=== PATIENT | male | born 1955 | race Caucasian/White ===

== ENCOUNTER 2018-11-13 07:22 | Day surgery (SDC) | payer MEDICARE, OTHER, SELFPAY ==
[2018-11-13] VITALS (7 sets, daily range): BP systolic 107–133; BP diastolic 79–103; PULSE 57–83; RESP 14–16; TEMP 36.6–36.8; O2SAT 97–100; BMI 23.4
--- NOTE | 2018-11-13 08:55 | HP.PCM_ITS ---
Problem List (1) Personal history of colonic polyps Status: Acute History of Present Illness Date of Admission: 11/13/18 The patient is a 63 year old M who presents for colonoscopy. I last performed his colonoscopy in 2011. This patient had a significant polyp in his rectum whi ch took me over a year to completely ablated with laser ablation. He did have some dysplasia and he was able to be treated with conservative colonoscopy removal as opposed to a large surgery. I recommended at that time that he have another colonoscopy in 5 years. Past Medical History Allergies procaine [From Novocain] Allergy (Verified 11/08/18 15:54) Unknown ramipril [From Altace] Adverse Reaction (Verified 11/13/18 07:45) COUGH triamcinolone [From Kenalog] Adverse Reaction (Verified 11/08/18 15:54) cough Home Medications: Ambulatory Orders Medication Instructions Recorded Aspirin E.C. [Ecotrin] 81 mg PO QHS 11/08/18 Atenolol [Tenormin (Beta Saturnino)] 25 mg PO QHS 11/08/18 Cyanocobalamin [Vitamin B12] 500 mcg PO DAILY@0800 11/08/18 Folic Acid 1 mg PO DAILY 11/08/18 Hydrochlorothiazide 12.5 mg PO QHS 11/08/18 Multivitamin with Minerals 1 each PO DAILY 11/08/18 [Multiple Vitamin] Pyridoxine HCl (Vitamin B6) 250 mg PO DAILY 11/08/18 [Vitamin B-6] Rosuvastatin Calcium [Crestor] 20 mg PO QHS 11/08/18 Valsartan [Diovan] 160 mg PO QHS 11/08/18 Vitamin E 400 units PO DAILY 11/08/18 Smoking Status: Former smoker Tobacco Use: Non-smoker Review of Systems Cardiovascular: Denies: Chest Pain, Chest Pressure, Chest Tightness, Palpitations Respiratory: Denies: Cough, Hemoptysis, Shortness of breath at rest, Shortness of breath upon exertion, Wheezing Gastrointestinal: Denies: Abdominal Pain, Constipation, Diarrhea, Hematemesis, Nausea, Melena, Vomiting VTE Information - Inpt Only VTE Present on Admission: No VTE Mechan Device Prophylaxis: None VTE Pharm Prophylaxis ordered?: No Reason prophylaxis not ordered:: Treatment Not Indicated Patient Problems: Active and Suspected Problems Personal history of colonic polyps (Acute) - Physical Exam General: Alert, Oriented x3 Lungs: Clear to auscultation Cardiovascular: Regular rate, Regular Rhythm, No murmurs Abdomen: Bowel Sounds Present, Soft, Non Tender, Non-Distended Vital Signs Temp Pulse Resp BP Pulse Ox 98.0 F 83 16 133/98 H 100 11/13/18 07:45 11/13/18 07:45 11/13/18 07:45 11/13/18 07:45 11/13/18 07:45 Oxygen Delivery Method Room Air Weight: 177 lb 14.609 oz Body Mass Index (BMI) 23.4 Assessment/Plan All Active Problems Personal history of colonic polyps (Acute) Plan is to perform a colonoscopy.
--- NOTE | 2018-11-13 08:59 | OP.ENDO_ITS ---
Patient Name: Abdirahman Macario Procedure Date: 11/13/2018 8:28 AM Date of : 1955 Age: 63 Procedure: Colonoscopy Indications: High risk colon cancer surveillance: Personal history of colonic polyps Providers: Gary Fam MD Referring MD: Gary Fam MD Medicines: See the Anesthesia note for documentation of the administered medications Patient Profile: This is a 63 year old male. Refer to note in patient chart for documentation of history and physical. Last Colonoscopy: 5 years ago. Complications: No immediate complications. Procedure: Pre-Anesthesia Assessment: - Prior to the procedure, a History and Physical was performed, and patient medications and allergies were reviewed. The patient's tolerance of previous anesthesia was also reviewed. The risks and benefits of the procedure and the sedation options and risks were discussed with the patient. All questions were answered, and informed consent was obtained. Prior Anticoagulants: The patient has taken no previous anticoagulant or antiplatelet agents. ASA Grade Assessment: II - A patient with mild systemic disease. After reviewing the risks and benefits, the patient was deemed in satisfactory condition to undergo the procedure. After I obtained informed consent, the scope was passed under direct vision. Throughout the procedure, the patient's blood pressure, pulse, and oxygen saturations were monitored continuously. The adult colonoscope was introduced through the anus and advanced to the cecum, identified by appendiceal orifice and ileocecal valve. The colonoscopy was performed without difficulty. The patient tolerated the procedure well. The quality of the bowel preparation was good. Scope In: 8:41:45 AM Scope Withdrawal Time 0 hours 6 minutes 7 seconds Scope Out: 8:51:07 AM Total Procedure Duration Time 0 hours 9 minutes 22 seconds Findings: The area where his previous dysplastic polyp was located look normal and had a nice scar. I did not see any signs of recurrence of the polyp at this time. I believe the best thing here to do is to surveilled this again in 5 years. The perianal and digital rectal examinations were normal. A few small-mouthed diverticula were found in the sigmoid colon. Impression: - Diverticulosis in the sigmoid colon. - No specimens collected. Recommendation: - Discharge patient to home. - Resume previous diet. - Continue present medications. - Repeat colonoscopy in 5 years for surveillance. - Return to my office PRN. Procedure Code(s): --- Professional --- G0105, Colorectal cancer screening; colonoscopy on individual at high risk Diagnosis Code(s): --- Professional --- Z86.010, Personal history of colonic polyps K57.30, Diverticulosis of large intestine without perforation or abscess without bleeding CPT copyright 2017 [employer]. All rights reserved. The codes documented in this report are preliminary and upon shoe repairman review may be revised to meet current compliance requirements. MD Gary Redd MD 11/13/2018 8:59:21 AM This report has been signed electronically. Number of Addenda: 0 Note Initiated On: 11/13/2018 8:28 AM
--- NOTE | 2018-11-13 09:15 | SUR.PHASEII ---
PATIENT STATES HE'S GOING TO WORK TODAY AT [email or web address], EXPLAINED/EDUCATED THAT WITH MAC ANESTHESIA, SHOULD NOT DRIVE, DRINK ALCOHOL, SIGN LEGAL DOCUMENTS, OPERATE HEAVY EQUIPMENT. EXPLAINED TO WELL.
== END 2018-11-13 09:52 | disposition home health service (06) ==
LOC: EN 07:22 → AC 07:25
PROVIDERS: Family Provider Family Medicine; PCP Family Medicine; Referring Provider Surgery; Visit Provider Surgery
PROC: 0DJD8ZZ Inspection of Lower Intestinal Tract, Via Natural or Artificial Opening Endoscopic (ICD-10-PCS; CPT 45378; principal; 2018-11-13 08:25)
DX: Z12.11 Encounter for screening for malignant neoplasm of colon (principal); K57.30 Diverticulosis of large intestine without perforation or abscess without bleeding; I10 Essential (primary) hypertension; E78.00 Pure hypercholesterolemia, unspecified; Z79.82 Long term (current) use of aspirin; Z79.899 Other long term (current) drug therapy; Z86.010 Personal history of colon polyps; Z86.718 Personal history of other venous thrombosis and embolism; Z85.828 Personal history of other malignant neoplasm of skin; Z87.891 Personal history of nicotine dependence
CPT/HCPCS: G0105; J7120

== ENCOUNTER 2022-08-20 19:41 | Emergency (ER) | payer MEDICARE, OTHER, SELFPAY ==
[2022-08-20 19:41] VITALS: BP 127/98; PULSE 69; RESP 16; TEMP 36.6; O2SAT 100; BMI 21.3
--- NOTE | 2022-08-20 20:02 | EKG12_ITS ---
Test Reason : SYNCOPE Blood Pressure : / mmHG Vent. Rate : 062 BPM Atrial Rate : 062 BPM P-R Int : 144 ms QRS Dur : 096 ms QT Int : 430 ms P-R-T Axes : 048 -22 025 degrees QTc Int : 436 ms Normal sinus rhythm Normal ECG Confirmed by KATIE WEAVER, NICO ([id number]), map editor KATHARINE DAVIS ([id number]) on 08/22/2022 8:19:11 AM Referred By: Confirmed By:NICO WILSON MD
--- NOTE | 2022-08-20 20:03 | EDS_ITS ---
HPI History of Present Illness Chief Complaint: Syncope Narrative Narrative: 67-year-old male past medical history of hypertension, states his blood pressure usually runs just above 130 systolic presents with syncopal episode that he experienced tonight. He and his daughter state that while she brought him here, paramedics were called to the house because he had a syncopal episode. He had been sleeping in a chair for approximately 45 minutes, got up, started walking, and fell into a coffee table and broke it. He did not hit his head. He does not take blood thinners. He denies any neck pain. They state that his left shoulder took the brunt of the fall, breaking the table but he denies any arm pain. He had no prodromal symptoms such as chest pain or shortness of breath. He states the next thing that he knew he woke up and there were paramedics present. They told him that his blood pressure was low. They stated that it was below 100 systolic. When they went to sit him up or stand him his blood pressure did drop again. He denies any recent fever or chills. No nausea or vomiting. No diarrhea. He is not currently in any pain. He takes atenolol and hydrochlorothiazide for his usual blood pressure problems/hypertension. [facility] Medical History Colon polyps Heart disease Hypercholesteremia Hypertension Home Medications aspirin 81 mg tablet,delayed release 81 mg PO QHS 11/08/18 [History Last Taken Unknown] atenolol 50 mg tablet 25 mg PO QHS 11/08/18 [History Last Taken Unknown] cyanocobalamin (vitamin B-12) 500 mcg tablet 500 mcg PO DAILY@0800 11/08/18 [History Last Taken Unknown] folic acid 1 mg tablet 1 mg PO DAILY 11/08/18 [History Last Taken Unknown] hydrochlorothiazide 12.5 mg tablet 12.5 mg PO QHS 11/08/18 [History Last Taken Unknown] multivitamin with minerals (Multiple Vitamin-Minerals tablet) 1 ea PO DAILY 11/08/18 [History Last Taken Unknown] pyridoxine (vitamin B6) 250 mg tablet (Vitamin B-6) 250 mg PO DAILY 11/08/18 [History Last Taken Unknown] rosuvastatin 20 mg tablet (Crestor) 20 mg PO QHS 11/08/18 [History Last Taken Unknown] valsartan 160 mg tablet 160 mg PO QHS 11/08/18 [History Last Taken Unknown] vitamin E (dl, acetate) 180 mg (400 unit) capsule 400 units PO DAILY 11/08/18 [History Last Taken Unknown] Allergy/AdvReac Type Severity Reaction Status Date / Time procaine [From Novocain] Allergy Unknown Verified 08/20/22 20:00 ramipril [From Altace] AdvReac COUGH Verified 08/20/22 20:00 triamcinolone [From Kenalog] AdvReac cough Verified 08/20/22 20:00 Social History Smoking Status: Former smoker ROS ROS ED ROS Narrative Constitutional: No fever, no chills. HEENT: No sore throat. No neck pain. No loss of vision. No rhinorrhea. Cardiovascular: No chest pain. No palpitations. No pedal edema. Positive syncopal episode for a few seconds this evening. Respiratory: No cough, no shortness of breath. Abdominal: No abdominal pain. No nausea. No vomiting. Genitourinary: No dysuria. No hematuria. Musculoskeletal: No myalgias. No arthralgias. Neurologic: No headaches. No dizziness. No lightheadedness. Skin: No rash. No change in color. Psychiatric: No depression. No anxiety. EXAM Physical Exam Narrative Exam Narrative: Afebrile. Vital signs noted. HEENT: Normocephalic. Atraumatic. PERRL, EOMI. Neck soft and supple. No point tenderness or step off. Cardiovascular: Regular rate and rhythm. No murmurs, rubs, or gallops appreciated. Respiratory: No tachypnea. Lungs clear to auscultation bilaterally. Gastrointestinal: Abdomen soft, nontender, with normoactive bowel sounds. No rebound or guarding. Neurological: Awake. Alert. Nonfocal, nonlateralizing. Able to raise arms above head without difficulty. Oriented x3. Skin: No rash. Normal color. No pallor. Musculoskeletal: No pedal edema. Full range of motion extremities. Const Vital Signs: 08/20/22 19:41 08/20/22 20:01 08/20/22 21:11 Temperature 97.8 F Temperature Source Temporal Pulse Rate 69 Pulse Rate [Lying] 56 L Pulse Rate [Sitting (for 1 minute prior to obtaining)] 61 Pulse Rate [Standing (for 1 minute prior to obtaining)] 69 Respiratory Rate 16 Respiratory Effort Normal Non-Labored Respiratory Pattern Normal Blood Pressure 127/98 H Blood Pressure [Lying] 110/68 Blood Pressure [Sitting (for 1 minute prior to obtaining)] 114/74 Blood Pressure [Standing (for 1 minute prior to obtaining)] 94/58 L Blood Pressure Mean 107 Blood Pressure Mean [Lying] 82 Blood Pressure Mean [Sitting (for 1 minute prior to obtaining)] 87 Blood Pressure Mean [Standing (for 1 minute prior to obtaining)] 70 Pulse Ox 100 Oxygen Delivery Method Room Air 08/20/22 21:44 Temperature Temperature Source Pulse Rate 58 L Pulse Rate [Lying] Pulse Rate [Sitting (for 1 minute prior to obtaining)] Pulse Rate [Standing (for 1 minute prior to obtaining)] Respiratory Rate 19 H Respiratory Effort Respiratory Pattern Blood Pressure 110/67 Blood Pressure [Lying] Blood Pressure [Sitting (for 1 minute prior to obtaining)] Blood Pressure [Standing (for 1 minute prior to obtaining)] Blood Pressure Mean 81 Blood Pressure Mean [Lying] Blood Pressure Mean [Sitting (for 1 minute prior to obtaining)] Blood Pressure Mean [Standing (for 1 minute prior to obtaining)] Pulse Ox Oxygen Delivery Method Room Air MDM MDM MDM Narrative Medical decision making narrative: I do feel that the patient may have experienced a syncopal episode after orthostatic hypotension. His current blood pressure is 127/98. However, given his age, comprehensive work-up was pursued. I will obtain EKG, CBC, CMP, and troponin. Urinalysis will also be obtained along with chest x-ray in 1 view. EKG interpreted by myself demonstrates normal sinus rhythm at 62 bpm without ectopy or acute ST changes. No STEMI. CBC is grossly normal with a normal white count of 10.8, hemoglobin normal at 16.3, hematocrit 49.0. Platelet count normal at 312. His electrolyte panel is grossly unremarkable, normal BUN of 15 with creatinine 0.9. Glucose appropriately elevated at 147 with a normal anion gap of 12. Lactic acid is elevated at 2.1. However there is no source of infection as his chest x-ray interpreted by myself shows no pneumonia. Urinalysis is negative for infection. I do feel that he has more of an orthostatic hypotension as demonstrated in his drop of systolic blood pressure to the 90s upon standing. I do think it is medication related as he takes hydrochlorothiazide and atenolol. He was told not to take his medications this evening. He was given an additional bolus of normal saline 1 L intravenously. His current blood pressure is in the 130s systolic. Initial high-sensitivity troponin 7. Second, 2-hour troponin is 8 for a delta troponin of 1. At this point in time, I do feel he can be discharged safely home with follow-up. He f eels well. He will keep a track of his blood pressure and call his primary care provider tomorrow who regulates his blood pressure medication. Disposition is discharged home in stable condition. Return instructions were reviewed. Lab Data Attestation: I reviewed the patient's lab results. Labs: Laboratory Results - last 24 hr 08/20/22 08/20/22 08/20/22 20:00 20:00 20:00 WBC 10.8 RBC 5.68 Hgb 16.3 Hct 49.0 MCV 86.3 MCH 28.7 MCHC 33.3 RDW Std Deviation 39.3 RDW Coeff of Ken 12.7 Plt Count 312 MPV 10.6 Immature Gran % (Auto) 0.600 Neut % (Auto) 50.2 Lymph % (Auto) 39.7 [place] % (Auto) 6.5 Eos % (Auto) 2.4 Baso % (Auto) 0.6 Absolute Neuts (auto) 5.4 Absolute Lymphs (auto) 4.28 Nucleated RBC % 0 Sodium 139 Potassium 3.5 Chloride 106 Carbon Dioxide 21.0 Anion Gap 12 BUN 15 Creatinine 0.91 Estim Creat Clear Calc 79.63 Est GFR (MDRD) Af Amer 106 Est GFR (MDRD) Non-Af 87 BUN/Creatinine Ratio 16.4 Glucose 147 H Lactic Acid Cancelled Calcium 9.4 Total Bilirubin 0.70 AST 24 ALT 61 Alkaline Phosphatase 23 L Troponin I High Sens 7 Total Protein 6.9 Albumin 3.7 Globulin 3.2 Albumin/Globulin Ratio 1.2 Urine Color Urine Clarity Urine pH Ur Specific [place] Urine Protein Urine Glucose (UA) Urine Ketones Urine Occult Blood Urine Nitrite Urine Bilirubin Urine Urobilinogen Ur Leukocyte Esterase Urine RBC Urine WBC Ur Squamous Epith Cells Urine Bacteria Hyaline Casts Urine Mucus 08/20/22 08/20/22 08/20/22 20:32 21:09 22:14 WBC RBC Hgb Hct MCV MCH MCHC RDW Std Deviation RDW Coeff of Ken Plt Count MPV Immature Gran % (Auto) Neut % (Auto) Lymph % (Auto) [place] % (Auto) Eos % (Auto) Baso % (Auto) Absolute Neuts (auto) Absolute Lymphs (auto) Nucleated RBC % Sodium Potassium Chloride Carbon Dioxide Anion Gap BUN Creatinine Estim Creat Clear Calc Est GFR (MDRD) Af Amer Est GFR (MDRD) Non-Af BUN/Creatinine Ratio Glucose Lactic Acid 2.1 H* Calcium Total Bilirubin AST ALT Alkaline Phosphatase Troponin I High Sens 8 Total Protein Albumin Globulin Albumin/Globulin Ratio Urine Color Yellow Urine Clarity Clear Urine pH 6.0 Ur Specific [place] 1.015 Urine Protein 30 H Urine Glucose (UA) Normal Urine Ketones Negative Urine Occult Blood 10 H Urine Nitrite Negative Urine Bilirubin Negative Urine Urobilinogen Normal Ur Leukocyte Esterase 25 H Urine RBC 0 SEEN Urine WBC 0-5 SEEN Ur Squamous Epith Cells 0-5 SEEN Urine Bacteria 0 SEEN Hyaline Casts 0-5 SEEN Urine Mucus 0 SEEN Radiography Diagnostic Testing: Clinical Impression(s) from Imaging Studies Chest X-Ray 08/20/22 20:15 IMPRESSION: Degenerative changes, as described above. No demonstrated acute cardiopulmonary process. Electronically Signed: Tom Rainey DO at 20:33 EST Reading Location ID and State: [address] [place] [address] Tel [phone], Service support , Discharge Plan Triage Chief Complaint: Syncope ED Provider: Jared Iniguez Dx/Rx/DC Orders Clinical Impression: Orthostatic syncope, Hypotension, Lactic acidosis, Intravascular volume depletion Instructions: ED Hypotension, Orthostatic, ED Low Blood Pressure, All Causes, ED Fainting, Uncertain Cause Prescriptions: No Action aspirin 81 MG tablet 81 mg PO QHS cyanocobalamin (vitamin B-12) 500 MCG tablet 500 mcg PO DAILY@0800 folic acid 1 MG tablet 1 mg PO DAILY multivitamin with minerals [Multiple Vitamin-Minerals] 1 EACH tablet 1 ea PO DAILY atenolol 50 MG tablet 25 mg PO QHS pyridoxine (vitamin B6) [Vitamin B-6] 250 MG tablet 250 mg PO DAILY valsartan 160 MG tablet 160 mg PO QHS rosuvastatin [Crestor] 20 MG tablet 20 mg PO QHS hydrochlorothiazide 12.5 MG tablet 12.5 mg PO QHS vitamin E (dl, acetate) 400 UNITS capsule 400 units PO DAILY Primary Care Provider: Greg Luque Referrals: Greg Luque MD [Primary Care Provider] - 1-2 Days if not improving Disposition Disposition: Home, Self Care
[2022-08-20] MEDS: 0.9% Normal Saline 1,000 ML 1000 ML IV (20:07)
[2022-08-20 20:14] LABS: Absolute Lymphocyte Count 4.28 X10^3/uL (0.83-4.51); Absolute Neutrophil Count 5.4 X10^3/uL (2.0-7.7); Basophil# 0.06 X10^3/uL; Basophil% 0.6 % (0-1); Eosinophil# 0.26 X10^3/uL; Eosinophils% 2.4 % (0-5); Hemoglobin 16.3 g/dL (13.0-16.5); Lymphocyte # 4.28 X10^3/ul (0.83-4.51); Lymphocyte % 39.7 % (19-41); Mean Corp Hgb Conc 33.3 g/dL (32-36); Mean Corpuscular Hgb 28.7 pg (27.0-32.0); Mean Corpuscular Volume 86.3 fL (80-94); Mean Platelet Vol. 10.6 fl (6.2-12.0); Monocyte% 6.5 % (0-10); NRBC Flagged by Analyzer 0 % (0-5); Neutrophil # 5.41 X10^3/uL (2.7-7.7); Neutrophil % 50.2 % (47-70); Platelet Count 312 K/mm3 (150-450); RBC Distribution Width CV 12.7 % (11.6-14.6); RBC Distribution Width SD 39.3 fl (35.1-43.9); Red Blood Count 5.68 M/mm3 (4.6-6.2); White Blood Count 10.8 K/mm3 (4.4-11.0)
--- NOTE | 2022-08-20 20:15 | RAD_ITS ---
STUDY: X-RAY CHEST REASON FOR EXAM: Male, 67 years old. Coronary artery disease. Syncopal episode today. History of multiple syncopal episodes and hypertension. TECHNIQUE: Single AP portable view of the chest. COMPARISON: None. FINDINGS: The lungs are clear and expanded. There is no demonstrated pleural abnormality. Normal size heart. Normal mediastinum and alice. Normal visualized pulmonary arteries. Normal visualized aortic arch and descending thoracic aorta. There are diffuse degenerative changes of the visualized thoracic spine. Normal visualized ribs, clavicles, and shoulders. There is no demonstrated abnormality of the visualized soft tissue structures of the upper abdomen. RAD/Chest 1 View (Portable) IMPRESSION: Degenerative changes, as described above. No demonstrated acute cardiopulmonary process. Electronically Signed: Tom Rainey DO at 20:33 EST ,
[2022-08-20 20:35] LABS: ALB/GLOB Ratio 1.2 RATIO (0.9-2.4); AST(SGOT) 24 U/L (15-37); Alanine Aminotransfer ALT/SGPT 61 U/L (16-61); Albumin, Serum 3.7 g/dL (3.2-5.0); Alkaline Phosphatase 23 U/L (45-117); Anion Gap 12 (5-15); BUN 15 mg/dL (7-18); BUN/Creat Ratio 16.4 RATIO (10-20); Calcium,Total 9.4 mg/dL (8.5-10.1); Chloride 106 mmol/L (98-107); Creatinine, Serum 0.91 mg/dL (0.70-1.30); EST Glomerular Filtration Rate 87 mL/min (>60); Est Glom Filt Rate - Afr Amer 106 mL/min (>60); Estimated Creatinine Clearance 79.63 ml/min; Globulin 3.2 g/dL (2.2-4.2); Glucose 147 mg/dL (74-106); Potassium 3.5 mmol/L (3.5-5.1); Protein, Total 6.9 g/dL (6.4-8.2); Sodium Level 139 mmol/L (136-145); Troponin-I HS (w/2H Reflex) 7 pg/mL (3.0-78.0)
[2022-08-20 20:37] LABS: Bacteria 0 SEEN /hpf (None Seen); Mucous, Urine 0 SEEN /hpf (<or=2+); Red Blood Cells-Urine 0 SEEN /hpf (0-5)
[2022-08-20 20:42] LABS: Color, Urine Yellow (Yellow); Glucose, Dipstick Normal (Normal); Ketone-Dipstick Negative (Negative); Leukocyte Esterase-Dipstick 25 /ul (Negative); Nitrite-Dipstick Negative (Negative); Occult Blood-Urine 10 /ul (Negative); Protein-Dipstick 30 mg/dl (Negative); Specific Gravity, Urine 1.015 (1.002-1.030); Urine Bilirubin Dipstick Negative (Negative); Urine Clarity Clear (Clear); Urine Urobilinogen Normal (Normal)
[2022-08-20 21:04] LABS: Squamous Epithelial Cells - UA 0-5 SEEN /hpf (0-5)
[2022-08-20 21:05] LABS: Hyaline Cast 0-5 SEEN /lpf (0-5); White Blood Cells 0-5 SEEN /hpf (0-5)
[2022-08-20 21:11] VITALS: BP 110/68; BP 114/74; BP 94/58; PULSE 56; PULSE 61; PULSE 69
[2022-08-20 21:42] LABS: Lactic Acid 2.1 mmol/L (0.4-1.9)
[2022-08-20 21:44] VITALS: BP 110/67; PULSE 58; RESP 19
[2022-08-20] MEDS: 0.9% Normal Saline 1,000 ML 999 ML IV (21:59)
[2022-08-20 22:09] LABS: Reflex Troponin-HS? (from REC) Y
[2022-08-20 22:39] LABS: Troponin-I HS 8 pg/mL (3.0-78.0)
[2022-08-20 23:01] VITALS: BP 143/88; PULSE 63; RESP 14; RESP 18
[2022-08-21 01:12] LABS: Reflex Lactate? Y
== END 2022-08-20 23:09 | disposition home or self-care (01) ==
PROVIDERS: Emergency Provider Emergency Medicine; PCP Family Medicine; Visit Provider Emergency Medicine
DX: I95.1 Orthostatic hypotension (principal); I10 Essential (primary) hypertension; E86.9 Volume depletion, unspecified; E78.00 Pure hypercholesterolemia, unspecified; E87.20 Acidosis, unspecified; Z79.82 Long term (current) use of aspirin; Z79.899 Other long term (current) drug therapy; Z87.891 Personal history of nicotine dependence
CPT/HCPCS: 71045; 80053; 81001; 83605; 84484; 85025; 93005; 96360; 96361; 99285; J7030; A4216

== ENCOUNTER 2024-04-20 14:48 | Emergency (ER) | payer MEDICARE, OTHER, SELFPAY ==
[2024-04-20 14:49] VITALS: BP 128/82; PULSE 80; RESP 16; TEMP 36.6; O2SAT 96; BMI 24.4
--- NOTE | 2024-04-20 14:54 | EX.ED.DYSGE1 ---
HPI <WESLEY Yo - Last Filed: 04/20/24 18:25> History of Present Illness Chief Complaint: Wound Check Narrative Narrative: Patient presenting today with a bleeding lesion to the top of his head. He recently had a melanoma removed from the top of his head and has had 2 or 3 procedures performed to remove surrounding tissue to perform biopsy. He and his have been keeping the area clean and applying dressings. This afternoon he had a mechanical fall getting up out of his chair and hit his head against the door that was sitting next to the chair, he then noticed bleeding from the lesion. He denies any headache, LOC, nausea, or vomiting. He is not on any blood thinners. [facility] <WESLEY Yo - Last Filed: 04/20/24 18:25> [facility] Medical History Hypertension Hypercholesteremia Heart disease Colon polyps Home Medications ?Medication ?Instructions ?Recorded ?Last Taken ?Type atenolol 50 mg tablet 25 mg PO QHS 11/08/18 Unknown History cyanocobalamin (vitamin B-12) 500 500 mcg PO DAILY@0800 11/08/18 Unknown History mcg tablet folic acid 1 mg tablet 1 mg PO DAILY 11/08/18 Unknown History hydrochlorothiazide 12.5 mg tablet 12.5 mg PO QHS 11/08/18 Unknown History multivitamin with minerals 1 ea PO DAILY 11/08/18 Unknown History (Multiple Vitamin-Minerals tablet) pyridoxine (vitamin B6) 250 mg 250 mg PO DAILY 11/08/18 Unknown History tablet (Vitamin B-6) rosuvastatin 20 mg tablet (Crestor) 40 mg PO QHS 11/08/18 Unknown History valsartan 160 mg tablet 320 mg PO QHS 11/08/18 Unknown History amlodipine 10 mg tablet 10 mg PO DAILY 04/20/24 Unknown History Allergy/AdvReac Type Severity Reaction Status Date / Time procaine (From Novocain) Allergy Unknown Verified 08/20/22 20:00 ramipril (From Altace) AdvReac COUGH Verified 08/20/22 20:00 triamcinolone (From Kenalog) AdvReac cough Verified 08/20/22 20:00 Social History Smoking Status: Former smoker ROS <WESLEY Yo - Last Filed: 04/20/24 18:25> ROS ED Constitutional Constitutional ED: Denies chills or fever(s) Cardiovascular Cardiovascular: Denies chest pain Respiratory/Chest Respiratory/Chest: Denies cough or dyspnea Gastrointestinal Gastrointestinal: Denies abdominal pain, nausea or vomiting Musculoskeletal Musculoskeletal: Denies arthralgias or myalgias Integumentary Reports wounds EXAM <WESLEY Yo - Last Filed: 04/20/24 18:25> Physical Exam Const Vital Signs: 04/20/24 14:49 04/20/24 15:53 Temperature 98 F 97.7 F L Temperature Source Oral Pulse Rate 80 82 Respiratory Rate 16 16 Blood Pressure 128/82 H 136/74 H Blood Pressure Mean 97 94 Pulse Ox 96 99 Oxygen Delivery Method Room Air Positive well nourished, well developed and no apparent distress General Appearance ED: well developed HEENT Reports normocephalic and head/scalp atraumatic HEENT Narrative: Quarter sized wound to the top of the head, bleeding under control. Mouth ED: Yes moist mucous membranes normal Eyes PERRL and EOMs intact bilaterally Neck full ROM and supple Chest Wall inspection of chest normal Resp normal respiratory effort and clear to auscultation bilaterally Cardio regular rate and regular rhythm Back/Spine normal ROM and normal to inspection Extremity normal to inspection and full ROM Neuro oriented x3, CN's II-XII intact bilaterally, moves all extremities, no focal motor deficits and no sensory deficits noted Sensorium / Orientation: awake and alert Psych mental status grossly normal and thought process normal <Dr. Sadiq Yates MD - Last Filed: 04/20/24 15:41> Physical Exam Const Vital Signs: 04/20/24 14:49 04/20/24 15:53 Temperature 98 F 97.7 F L Temperature Source Oral Pulse Rate 80 82 Respiratory Rate 16 16 Blood Pressure 128/82 H 136/74 H Blood Pressure Mean 97 94 Pulse Ox 96 99 Oxygen Delivery Method Room Air MDM <WESLEY Yo - Last Filed: 04/20/24 18:25> MDM MDM Narrative Medical decision making narrative: Patient presenting today with a quarter sized wound to the top of his head, patient had been trying to apply pressure to the wound to get it to stop bleeding but was unsuccessful, prompting him to come in for evaluation. There is no active bleeding. The area was cleaned, topical let was applied. Dermabond was then applied to the wound. He does have a follow-up appointment with the clothespin machine operator on . Return instructions were given. Patient discharged home in stable condition. I have personally performed a face to face assessment of the patient and have reviewed the ITA Note. I performed a substantive portion of the visit including all aspects of the following. My rodríguez findings include: History is 69-year-old male had a melanoma resected from the top of his scalp. He has had 2-3 dermatologic procedures done on it. Today they were changing the dressing to clean it when it started bleeding. He is not on any blood thinners. Denies any other complaints. Exam is [well-appearing 69-year-old male. Vital signs stable afebrile. H EENT exam pupils round react to light. He is about a quarter sized wound on the top left of his anterior scalp. Currently is not actively bleeding. There is no signs of infection. Otherwise exam unremarkable. Lungs are clear. Heart regular rhythm rate about 80 no murmur. Abdomen soft nontender. He is awake and alert.] Medical Decision Making [nurses have cleaned the wound. There is no active bleeding. Let will be applied topically. Dermabond and a dressing. He is following up to see his clothespin machine operator on . He knows return if this area rebleeds he is unable to get it stopped with direct pressure.] Other additions or changes: [None] <Dr. Sadiq Yates MD - Last Filed: 04/20/24 15:41> [facility] Narrative Medical decision making narrative: I have personally performed a face to face assessment of the patient and have reviewed the ITA Note. I performed a substantive portion of the visit including all aspects of the following. My rodríguez findings include: History is 69-year-old male had a melanoma resected from the top of his scalp. He has had 2-3 dermatologic procedures done on it. Today they were changing the dressing to clean it when it started bleeding. He is not on any blood thinners. Denies any other complaints. Exam is [well-appearing 69-year-old male. Vital signs stable afebrile. H EENT exam pupils round react to light. He is about a quarter sized wound on the top left of his anterior scalp. Currently is not actively bleeding. There is no signs of infection. Otherwise exam unremarkable. Lungs are clear. Heart regular rhythm rate about 80 no murmur. Abdomen soft nontender. He is awake and alert.] Medical Decision Making [nurses have cleaned the wound. There is no active bleeding. Let will be applied topically. Dermabond and a dressing. He is following up to see his clothespin machine operator on . He knows return if this area rebleeds he is unable to get it stopped with direct pressure.] Other additions or changes: [None] History & Record Review Discussion w/independent historian: Patient and Family Additional record(s) reviewed:: Prior inpatient record, Prior outpatient record, Prior ED visit and Prior labs Procedures <Dr. Sadiq Yates MD - Last Filed: 04/20/24 15:41> Other Procedures Procedure(s): Scalp wound was clean. There is no active bleeding. Let was applied. Dermabond was placed over the site that was bleeding. Currently at 3:40 PM there is no active bleeding. They were instructed on wound care and follow-up. Discharge Plan Triage Chief Complaint: Wound Check ED Midlevel Provider: Shaneka Del Rosario ED Provider: Sadiq Yates Dx/Rx/DC Orders Clinical Impression: Bleeding from wound, Hx of malignant melanoma Prescriptions: No Action cyanocobalamin (vitamin B-12) 500 MCG tablet 500 mcg PO DAILY@0800 folic acid 1 MG tablet 1 mg PO DAILY Multiple Vitamin-Minerals 1 EACH tablet 1 ea PO DAILY atenolol 50 MG tablet 25 mg PO QHS pyridoxine (vitamin B6) [Vitamin B-6] 250 MG tablet 250 mg PO DAILY valsartan 160 MG tablet 320 mg PO QHS rosuvastatin [Crestor] 20 MG tablet 40 mg PO QHS hydrochlorothiazide 12.5 MG tablet 12.5 mg PO QHS amlodipine 10 mg tablet 10 mg PO DAILY Primary Care Provider: Greg Luque Referrals: Greg Luque MD [Primary Care Provider] - Activity Restrictions/Additional Instructions: Leave the dressing on do not clean it do not take the dressing off until you follow-up with your clothespin machine operator. If it rebleeds hold direct pressure for 20 to 30 minutes if you are unable to get it stopped just return. Call let your clothespin machine operator know they may want to move your appointment up if not just keep the appointment later this week. Print Language: [place] Disposition Disposition: Home, Self Care Discharge Date/Time: 04/20/24 15:56
[2024-04-20] MEDS: Lidocaine/Epi/Tetracaine 50 ML 1 APPLIC TOPICAL (15:18)
[2024-04-20 15:53] VITALS: BP 136/74; PULSE 82; RESP 16; TEMP 36.5; O2SAT 99
== END 2024-04-20 15:56 | disposition home or self-care (01) ==
LOC: ED 15:20
PROVIDERS: Emergency Provider Emergency Medicine; PCP Family Medicine; Visit Provider Emergency Medicine
DX: S01.00XA Unspecified open wound of scalp, initial encounter (principal); W07.XXXA Fall from chair, initial encounter; Z85.820 Personal history of malignant melanoma of skin; I10 Essential (primary) hypertension; E78.00 Pure hypercholesterolemia, unspecified; Z79.899 Other long term (current) drug therapy; Z98.890 Other specified postprocedural states; Z87.891 Personal history of nicotine dependence
CPT/HCPCS: 12001; 99282

== ENCOUNTER 2024-08-15 12:24 | Emergency (ER) | payer MEDICARE, OTHER, SELFPAY ==
[2024-08-15 12:24] VITALS: BP 176/84; PULSE 77; RESP 15; TEMP 36.2; O2SAT 100; BMI 22.4
--- NOTE | 2024-08-15 12:51 | CT_ITS ---
STUDY: CT ABDOMEN AND PELVIS WITH CONTRAST - URINARY TRACT REASON FOR EXAM: Male, 69 years old. Urinary retention- DELAYS PERFORMED RADIATION DOSAGE (If Supplied By Facility): CTDIvol = ( 13.31 ) mGy, DLP = ( 1558.05 ) mGycm TECHNIQUE: IV 100mL Isovue-300 was administered. Transaxial images were obtained from the dome of the diaphragm to the symphysis pubis. In the arterial and excretory phases. Multiplanar coronal and sagittal images were reformatted. The protocol utilizes one or more of the following dose reduction techniques: automated exposure control, adjustment of mA and/or kV according to patient size,and/or use of iterative reconstruction technique. COMPARISON: No relevant prior comparison study available FINDINGS: The visualized lung bases are unremarkable. The visualized portions of the heart are within normal limits. Normal liver. Normal gallbladder and extrahepatic biliary system. There is a round low-attenuation focus within the spleen which fills in on the delayed images suggestive of a hemangioma. Normal pancreas. Normal bilateral adrenal glands. Normal visualized stomach. Normal small intestine. There are multiple colonic diverticula consistent with diverticulosis. The appendix is visualized and appears normal. There is diffuse atherosclerotic calcification of the abdominal aorta, without a demonstrated aneurysm. No retroperitoneal adenopathy. There are bilateral renal cysts. There is an indeterminant exophytic mildly high in attenuation 1.2 x 1.3 cm focus arising from the mid/lower pole of the left kidney. There is a Jones catheter within an incompletely distended urinary bladder there is bladder wall thickening.There is enlargement of the prostate gland extends into the posterior urinary bladder. Normal abdominal wall. There are diffuse degenerative changes of the visualized lumbar spine. CT/Abdomen/Pelvis W IV Cont ONLY IMPRESSION: Enlarged prostate gland protruding into the posterior urinary bladder; cannot exclude an underlying occult posterior bladder wall mass. Bladder wall thickening, may be partially secondary to its incompletely distended state, cannot exclude cystitis. Indeterminant 1.2 x 1.3 cm exophytic left renal focus which may reflect a proteinaceous cyst, cannot exclude a neoplastic process, recommend nonemergent abdominal MRI with contrast for further characterization. Atherosclerosis. Electronically Signed: Josette Lerma MD at 14:23 EST ,
--- NOTE | 2024-08-15 12:58 | EX.ED.GUMALE ---
HPI <WESLEY Yo - Last Filed: 08/15/24 16:20> History of Present Illness Chief Complaint: Complaint Narrative Narrative: Patient presenting today with urinary retention. He reports that he last urinated sometime yesterday evening. He has never had this issue before. He has been trying to urinate since of midnight without any success. He denies any history of enlarged prostate that he is aware of, he does not follow with a urologist. He denies any fevers, chills, abdominal pain, nausea, or vomiting. He has a PMH of HLD and hypertension. PFSH <WESLEY Yo - Last Filed: 08/15/24 16:20> PFSH Medical History Hypertension Hypercholesteremia Heart disease Colon polyps Home Medications ?Medication ?Instructions ?Recorded ?Last Taken ?Type atenolol 50 mg tablet 25 mg PO QHS 11/08/18 Unknown History cyanocobalamin (vitamin B-12) 500 500 mcg PO DAILY@0800 11/08/18 Unknown History mcg tablet folic acid 1 mg tablet 1 mg PO DAILY 11/08/18 Unknown History hydrochlorothiazide 12.5 mg tablet 12.5 mg PO QHS 11/08/18 Unknown History multivitamin with minerals 1 ea PO DAILY 11/08/18 Unknown History (Multiple Vitamin-Minerals tablet) pyridoxine (vitamin B6) 250 mg 250 mg PO DAILY 11/08/18 Unknown History tablet (Vitamin B-6) rosuvastatin 20 mg tablet (Crestor) 40 mg PO QHS 11/08/18 Unknown History valsartan 160 mg tablet 320 mg PO QHS 11/08/18 Unknown History amlodipine 10 mg tablet 10 mg PO DAILY 04/20/24 Unknown History Allergy/AdvReac Type Severity Reaction Status Date / Time procaine (From Novocain) Allergy Unknown Verified 08/16/24 07:14 ramipril (From Altace) AdvReac COUGH Verified 08/16/24 07:14 triamcinolone (From Kenalog) AdvReac cough Verified 08/16/24 07:14 Social History Smoking Status: Former smoker ROS <WESLEY Yo - Last Filed: 08/15/24 16:20> ROS ED Constitutional Constitutional ED: Denies chills or fever(s) Cardiovascular Cardiovascular: Denies chest pain Respiratory/Chest Respiratory/Chest: Denies cough Gastrointestinal Gastrointestinal: Denies abdominal pain, nausea or vomiting Genitourinary Genitourinary ED: Reports other Details: Urinary retention Musculoskeletal Musculoskeletal: Denies back pain Neurologic Neurologic: Denies weakness EXAM <WESLEY Yo Last Filed: 08/15/24 16:20> Physical Exam Const Vital Signs: 08/15/24 12:24 08/15/24 14:53 08/15/24 14:53 Temperature 97.2 F L 97.8 F Temperature Source Temporal Pulse Rate 77 76 68 Respiratory Rate 15 16 16 Blood Pressure 176/84 H 136/72 H 136/78 H Blood Pressure Mean 114 93 97 Pulse Ox 100 98 98 Oxygen Delivery Method Room Air Room Air Positive well nourished, well developed and no apparent distress General Appearance ED: well developed HEENT Reports normocephalic and head/scalp atraumatic Mouth ED: Yes moist mucous membranes normal Eyes PERRL and EOMs intact bilaterally Neck full ROM and supple Chest Wall inspection of chest normal Resp normal respiratory effort and clear to auscultation bilaterally Cardio regular rate and regular rhythm GI soft to palpation, non-tender, non-distended and no masses Back/Spine no CVA tenderness Extremity normal to inspection and full ROM Neuro oriented x3, CN's II-XII intact bilaterally, moves all extremities, no focal motor deficits and no sensory deficits noted Sensorium / Orientation: awake and alert Psych mental status grossly normal and thought process normal Skin no rashes or lesions noted and no wounds <Dr. Donn Diaz DO - Last Filed: 08/18/24 00:47> Physical Exam Const Vital Signs: 08/15/24 12:24 08/15/24 14:53 08/15/24 14:53 Temperature 97.2 F L 97.8 F Temperature Source Temporal Pulse Rate 77 76 68 Respiratory Rate 15 16 16 Blood Pressure 176/84 H 136/72 H 136/78 H Blood Pressure Mean 114 93 97 Pulse Ox 100 98 98 Oxygen Delivery Method Room Air Room Air MDM <WESLEY Yo Last Filed: 08/15/24 16:20> MDM MDM Narrative Medical decision making narrative: Patient presenting today with urinary retention that he has had since yesterday evening. This is never happened before. He is nontoxic-appearing and in no acute distress. Bladder scan was performed and had around 1000 cc of urine, Jones catheter was placed and patient reported immediate relief of his symptoms. Given he has no known history of enlarged prostate, CT scan of the abdomen pelvis obtained to rule out underlying mass. CT shows enlarged prostate, cannot rule out underlying mass, also shows a left renal cystic structure, underlying mass cannot be excluded. Radiologist recommends nonemergent MRI as an outpatient. I did communicate these findings with the patient, I referred him to urology. His CBC showed a WBC of 12.9, his creatinine is WNL, BUN is 21, UA negative for UTI but does show blood likely from Jones catheter placement. Return instructions were discussed with the patient, patient discharged home in stable condition Supervisory Physician Note Patient was seen and examined with the Advanced Practice Provider. Nursing notes and vital signs have been reviewed. Pertinent old records have been reviewed. I agree with the essential elements of the ITA's history, physical exam, assessment, and plan. The differential diagnosis and management options were discussed with the ITA. I participated in determining and agree with the management, procedures, final impression and disposition as documented. See changes noted by me. Please see addendum or separate note for any additional details. 69-year-old male who presents for evaluation of urinary retention. Patient denies history of urinary retention or BPH. Last urinated yesterday. Associated symptom was suprapubic abdominal pain that resolved with Jones placement. Denies any fever, chills, nausea, vomiting, penile or testicular pain or swelling, denies hematuria or dysuria denies rectal pain. Gen: A&O x3, NAD Head: Normocephalic, atraumatic Eyes: No sclera icterus, conjunctiva clear ENT: Moist mucous membranes CV: RRR, no murmurs, no peripheral edema Resp: Lungs CTA BL, no w/r/c GI: Abd soft, non-distended, non-tender, no r/r/g : Circumcised penis. No penile tenderness or discharge. No penile or testicular swelling. Normal lie and position of the testicles. No testicular tenderness, masses, or skin changes. Cremasteric reflexes intact and equal bilaterally. No rashes. No palpable hernias. Jones in place. : No CVA tenderness Musc: Full ROM, no deformity Skin: Warm, dry Neuro: Alert, oriented, grossly intact, sensation intact Psych: Cooperative, appropriate mood and affect Differential diagnosis includes but is not limited to BPH, electrolyte abnormality, UTI, prostatic cancer, bladder cancer. Bladder scan on arrival showed urinary retention, Jones was placed. No gross hematuria. Patient's pain improved with Jones placement. Given patient has no history of urinary retention, laboratory workup ordered including CT abdomen pelvis. CBC with mild leukocytosis of 12.9. No anemia. BMP without ANDREW or significant electrolyte abnormality. UA is positive for blood likely secondary from catheter placement. Negative for UTI. CT abdomen pelvis shows enlarged prostate, cannot exclude an underlying occult posterior bladder wall mass. Bladder wall thickening. A left proteinemia cyst versus neoplastic process. Recommend nonemergent abdominal MRI with contrast. Patient's urinary retention is likely secondary to prostate enlargement. However cannot rule out neoplastic process of the kidney, bladder, prostate. Patient will need to follow-up with PCP for further evaluation with MRI as well as urology for further workup and management. There is no on-call provider for urology today therefore outpatient referral for urology was given. Patient will be discharged home with Jones catheter. Return precautions explained. Impression: 1. Urinary retention requiring Jones placement 2. Enlarged prostate cannot exclude an underlying occult posterior bladder wall mass 3. Incidentally found exophytic left renal focus, may reflect a proteinaceous cyst however cannot exclude neoplastic process, will need nonemergent MRI outpatient Lab Data Attestation: I reviewed the patient's lab results. Labs: Laboratory Results - last 24 hr 08/15/24 08/15/24 13:14 13:20 WBC 12.9 H RBC 4.93 Hgb 14.0 Hct 41.8 MCV 84.8 MCH 28.4 MCHC 33.5 RDW Std Deviation 38.8 RDW Coeff of Ken 12.7 Plt Count 266 MPV 10.5 Immature Gran % (Auto) 0.500 Neut % (Auto) 82.6 H Lymph % (Auto) 9.8 L [place] % (Auto) 6.7 Eos % (Auto) 0.2 Baso % (Auto) 0.2 Absolute Neuts (auto) 10.7 H Absolute Lymphs (auto) 1.27 Nucleated RBC % 0 Sodium 139 Potassium 4.0 Chloride 108 H Carbon Dioxide 24.0 Anion Gap 7 BUN 21 H Creatinine 0.93 Estim Creat Clear Calc 79.46 Est GFR (MDRD) Af Amer 103 Est GFR (MDRD) Non-Af 85 BUN/Creatinine Ratio 22.6 H Glucose 108 H Calcium 9.1 Urine Color Yellow Urine Clarity Sl. Cloudy Urine pH 5.0 Ur Specific [place] 1.020 Urine Protein 30 H Urine Glucose (UA) Normal Urine Ketones 5 H Urine Occult Blood 250 H Urine Nitrite Negative Urine Bilirubin Negative Urine Urobilinogen Normal Ur Leukocyte Esterase Negative Urine RBC > 100 SEEN Urine WBC 0 SEEN Ur Squamous Epith Cells 0 SEEN Urine Bacteria 1+ Hyaline Casts 0-5 SEEN Urine Mucus 2+ Radiography Diagnostic Testing: Clinical Impression(s) from Imaging Studies Abdomen/Pelvis CT 08/15/24 12:51 IMPRESSION: Enlarged prostate gland protruding into the posterior urinary bladder; cannot exclude an underlying occult posterior bladder wall mass. Bladder wall thickening, may be partially secondary to its incompletely distended state, cannot exclude cystitis. Indeterminant 1.2 x 1.3 cm exophytic left renal focus which may reflect a proteinaceous cyst, cannot exclude a neoplastic process, recommend nonemergent abdominal MRI with contrast for further characterization. Atherosclerosis. Electronically Signed: Josette Lerma MD at 14:23 EST , <Dr. Donn Diaz, DO - Last Filed: 08/18/24 00:47> [facility] Narrative Medical decision making narrative: Supervisory Physician Note Patient was seen and examined with the Advanced Practice Provider. Nursing notes and vital signs have been reviewed. Pertinent old records have been reviewed. I agree with the essential elements of the ITA's history, physical exam, assessment, and plan. The differential diagnosis and management options were discussed with the ITA. I participated in determining and agree with the management, procedures, final impression and disposition as documented. See changes noted by me. Please see addendum or separate note for any additional details. 69-year-old male who presents for evaluation of urinary retention. Patient denies history of urinary retention or BPH. Last urinated yesterday. Associated symptom was suprapubic abdominal pain that resolved with Jones placement. Denies any fever, chills, nausea, vomiting, penile or testicular pain or swelling, denies hematuria or dysuria denies rectal pain. Gen: A&O x3, NAD Head: Normocephalic, atraumatic Eyes: No sclera icterus, conjunctiva clear ENT: Moist mucous membranes CV: RRR, no murmurs, no peripheral edema Resp: Lungs CTA BL, no w/r/c GI: Abd soft, non-distended, non-tender, no r/r/g : Circumcised penis. No penile tenderness or discharge. No penile or testicular swelling. Normal lie and position of the testicles. No testicular tenderness, masses, or skin changes. Cremasteric reflexes intact and equal bilaterally. No rashes. No palpable hernias. Jones in place. : No CVA tenderness Musc: Full ROM, no deformity Skin: Warm, dry Neuro: Alert, oriented, grossly intact, sensation intact Psych: Cooperative, appropriate mood and affect Differential diagnosis includes but is not limited to BPH, electrolyte abnormality, UTI, prostatic cancer, bladder cancer. Bladder scan on arrival showed urinary retention, Jones was placed. No gross hematuria. Patient's pain improved with Jones placement. Given patient has no history of urinary retention, laboratory workup ordered including CT abdomen pelvis. CBC with mild leukocytosis of 12.9. No anemia. BMP without ANDREW or significant electrolyte abnormality. UA is positive for blood likely secondary from catheter placement. Negative for UTI. CT abdomen pelvis shows enlarged prostate, cannot exclude an underlying occult posterior bladder wall mass. Bladder wall thickening. A left proteinemia cyst versus neoplastic process. Recommend nonemergent abdominal MRI with contrast. Patient's urinary retention is likely secondary to prostate enlargement. However cannot rule out neoplastic process of the kidney, bladder, prostate. Patient will need to follow-up with PCP for further evaluation with MRI as well as urology for further workup and management. There is no on-call provider for urology today therefore outpatient referral for urology was given. Patient will be discharged home with Jones catheter. Return precautions explained. Impression: 1. Urinary retention requiring Jones placement 2. Enlarged prostate cannot exclude an underlying occult posterior bladder wall mass 3. Incidentally found exophytic left renal focus, may reflect a proteinaceous cyst however cannot exclude neoplastic process, will need nonemergent MRI outpatient Lab Data Labs: Laboratory Results - last 24 hr 08/15/24 08/15/24 13:14 13:20 WBC 12.9 H RBC 4.93 Hgb 14.0 Hct 41.8 MCV 84.8 MCH 28.4 MCHC 33.5 RDW Std Deviation 38.8 RDW Coeff of Ken 12.7 Plt Count 266 MPV 10.5 Immature Gran % (Auto) 0.500 Neut % (Auto) 82.6 H Lymph % (Auto) 9.8 L [place] % (Auto) 6.7 Eos % (Auto) 0.2 Baso % (Auto) 0.2 Absolute Neuts (auto) 10.7 H Absolute Lymphs (auto) 1.27 Nucleated RBC % 0 Sodium 139 Potassium 4.0 Chloride 108 H Carbon Dioxide 24.0 Anion Gap 7 BUN 21 H Creatinine 0.93 Estim Creat Clear Calc 79.46 Est GFR (MDRD) Af Amer 103 Est GFR (MDRD) Non-Af 85 BUN/Creatinine Ratio 22.6 H Glucose 108 H Calcium 9.1 Urine Color Yellow Urine Clarity Sl. Cloudy Urine pH 5.0 Ur Specific [place] 1.020 Urine Protein 30 H Urine Glucose (UA) Normal Urine Ketones 5 H Urine Occult Blood 250 H Urine Nitrite Negative Urine Bilirubin Negative Urine Urobilinogen Normal Ur Leukocyte Esterase Negative Urine RBC > 100 SEEN Urine WBC 0 SEEN Ur Squamous Epith Cells 0 SEEN Urine Bacteria 1+ Hyaline Casts 0-5 SEEN Urine Mucus 2+ Radiography Diagnostic Testing: Clinical Impression(s) from Imaging Studies Abdomen/Pelvis CT 08/15/24 12:51 IMPRESSION: Enlarged prostate gland protruding into the posterior urinary bladder; cannot exclude an underlying occult posterior bladder wall mass. Bladder wall thickening, may be partially secondary to its incompletely distended state, cannot exclude cystitis. Indeterminant 1.2 x 1.3 cm exophytic left renal focus which may reflect a proteinaceous cyst, cannot exclude a neoplastic process, recommend nonemergent abdominal MRI with contrast for further characterization. Atherosclerosis. Electronically Signed: Josette Lerma MD at 14:23 EST , Discharge Plan Triage Chief Complaint: Complaint ED Midlevel Provider: Shaneka Del Rosario ED Provider: Donn Diaz Dx/Rx/DC Orders Clinical Impression: Urinary retention Instructions: ED Urinary Retention, Male Prescriptions: No Action cyanocobalamin (vitamin B-12) 500 MCG tablet 500 mcg PO DAILY@0800 folic acid 1 MG tablet 1 mg PO DAILY Multiple Vitamin-Minerals 1 EACH tablet 1 ea PO DAILY atenolol 50 MG tablet 25 mg PO QHS pyridoxine (vitamin B6) [Vitamin B-6] 250 MG tablet 250 mg PO DAILY valsartan 160 MG tablet 320 mg PO QHS rosuvastatin [Crestor] 20 MG tablet 40 mg PO QHS hydrochlorothiazide 12.5 MG tablet 12.5 mg PO QHS amlodipine 10 mg tablet 10 mg PO DAILY Primary Care Provider: Greg Luque Referrals: Greg Luque MD [Primary Care Provider] - Alex Diaz MD [Med Staff - Active Staff] - 5-7 Days Activity Restrictions/Additional Instructions: Follow-up with urology. Please follow-up with your PCP, the radiologist recommended that you have an abdominal MRI to exclude neoplastic process. Return for any other concerns or worsening symptoms. Print Language: Frisian Disposition Disposition: Home, Self Care Discharge Date/Time: 08/15/24 14:54
[2024-08-15 13:23] LABS: Squamous Epithelial Cells - UA 0 SEEN /hpf (0-5); White Blood Cells 0 SEEN /hpf (0-5)
[2024-08-15 13:26] LABS: Absolute Lymphocyte Count 1.27 X10^3/uL (0.83-4.51); Absolute Neutrophil Count 10.7 X10^3/uL (2.0-7.7); Basophil# 0.03 X10^3/uL; Basophil% 0.2 % (0-1); Eosinophil# 0.02 X10^3/uL; Eosinophils% 0.2 % (0-5); Hematocrit 41.8 % (40-54); Lymphocyte # 1.27 X10^3/ul (0.83-4.51); Lymphocyte % 9.8 % (19-41); Mean Corp Hgb Conc 33.5 g/dL (32-36); Mean Corpuscular Hgb 28.4 pg (27.0-32.0); Mean Corpuscular Volume 84.8 fL (80-94); Mean Platelet Vol. 10.5 fl (6.2-12.0); Monocyte# 0.86 X10^3/uL; Monocyte% 6.7 % (0-10); NRBC Flagged by Analyzer 0 % (0-5); Neutrophil # 10.68 X10^3/uL (2.7-7.7); Neutrophil % 82.6 % (47-70); Platelet Count 266 K/mm3 (150-450); RBC Distribution Width CV 12.7 % (11.6-14.6); RBC Distribution Width SD 38.8 fl (35.1-43.9); Red Blood Count 4.93 M/mm3 (4.6-6.2); White Blood Count 12.9 K/mm3 (4.4-11.0)
[2024-08-15 13:27] LABS: Color, Urine Yellow (Yellow); Glucose, Dipstick Normal (Normal); Ketone-Dipstick 5 mg/dl (Negative); Leukocyte Esterase-Dipstick Negative /ul (Negative); Nitrite-Dipstick Negative (Negative); Occult Blood-Urine 250 /ul (Negative); Protein-Dipstick 30 mg/dl (Negative); Urine Bilirubin Dipstick Negative (Negative); Urine Clarity Sl. Cloudy (Clear); Urine Urobilinogen Normal (Normal)
[2024-08-15 13:34] LABS: Bacteria 1+ /hpf (None Seen); Hyaline Cast 0-5 SEEN /lpf (0-5); Mucous, Urine 2+ /hpf (<or=2+); Red Blood Cells-Urine > 100 SEEN /hpf (0-5)
[2024-08-15 13:40] LABS: Anion Gap 7 (5-15); BUN 21 mg/dL (7-18); BUN/Creat Ratio 22.6 RATIO (10-20); Calcium,Total 9.1 mg/dL (8.5-10.1); Chloride 108 mmol/L (98-107); Creatinine, Serum 0.93 mg/dL (0.70-1.30); EST Glomerular Filtration Rate 85 mL/min (>60); Est Glom Filt Rate - Afr Amer 103 mL/min (>60); Estimated Creatinine Clearance 79.46 ml/min; Glucose 108 mg/dL (74-106); Sodium Level 139 mmol/L (136-145)
[2024-08-15 14:53] VITALS: BP 136/72; BP 136/78; PULSE 68; PULSE 76; RESP 16; TEMP 36.6; O2SAT 98
== END 2024-08-15 14:54 | disposition home or self-care (01) ==
PROVIDERS: Physician Assistant; Emergency Provider Surgery; PCP Family Medicine; Visit Provider Surgery
DX: N40.1 Benign prostatic hyperplasia with lower urinary tract symptoms (principal); E78.00 Pure hypercholesterolemia, unspecified; Z87.891 Personal history of nicotine dependence; I10 Essential (primary) hypertension; R33.8 Other retention of urine
CPT/HCPCS: 51702; 74177; 80048; 81001; 85025; 99284; Q9967; A4216

== ENCOUNTER 2024-08-16 07:12 | Emergency (ER) | payer MEDICARE, OTHER, SELFPAY ==
[2024-08-16 07:14] VITALS: BP 114/75; PULSE 62; RESP 18; TEMP 36.7; O2SAT 97; BMI 23.6
--- NOTE | 2024-08-16 09:02 | EDS_ITS ---
HPI History of Present Illness Chief Complaint: Jones C/O Narrative Narrative: Patient is a 69-year-old male who is presenting to the ER today with chief complaint of concerns of his Jones catheter, blood in the Jones bag, and also some blood around urethral meatus. Patient was in the ER yesterday. Patient had urinary retention. Patient had Jones catheter placed yesterday. Patient's uncertain of urinary tract infection versus BPH, uncertain why he had urinary retention. Patient is going to be calling urology on Sunday for follow-up appointment. He attempted to call yesterday afternoon when he got home from the ER, and the office was closed. Patient has no abdominal pain, no suprapubic pressure. No other acute complaints. Patient is here with his . Patient noticed some small amount of blood in his Jones catheter bag, slightly blood- tinged. Patient has a proximately a total of a quarter size small areas of bleeding in his underwear that he had this morning and also noticed a little bit when he was walking around the store this morning, extremity minimal. Patient came into the ER. He is never had a Jones catheter before. No fever or chills. No flank or back pain. No acute complaints. [facility] Medical History Hypertension Hypercholesteremia Heart disease Colon polyps Home Medications ?Medication ?Instructions ?Recorded ?Last Taken ?Type atenolol 50 mg tablet 25 mg PO QHS 11/08/18 Unknown History cyanocobalamin (vitamin B-12) 500 500 mcg PO DAILY@0800 11/08/18 Unknown History mcg tablet folic acid 1 mg tablet 1 mg PO DAILY 11/08/18 Unknown History hydrochlorothiazide 12.5 mg tablet 12.5 mg PO QHS 11/08/18 Unknown History multivitamin with minerals 1 ea PO DAILY 11/08/18 Unknown History (Multiple Vitamin-Minerals tablet) pyridoxine (vitamin B6) 250 mg 250 mg PO DAILY 11/08/18 Unknown History tablet (Vitamin B-6) rosuvastatin 20 mg tablet (Crestor) 40 mg PO QHS 11/08/18 Unknown History valsartan 160 mg tablet 320 mg PO QHS 11/08/18 Unknown History amlodipine 10 mg tablet 10 mg PO DAILY 04/20/24 Unknown History Allergy/AdvReac Type Severity Reaction Status Date / Time procaine (From Novocain) Allergy Unknown Verified 08/16/24 07:14 ramipril (From Altace) AdvReac COUGH Verified 08/16/24 07:14 triamcinolone (From Kenalog) AdvReac cough Verified 08/16/24 07:14 Social History Smoking Status: Former smoker ROS ROS ED ROS Narrative REVIEW OF SYSTEMS: Unless otherwise stated in this report the patient's positive and negative responses for review of systems for constitutional, eyes, ENT, cardiovascular, respiratory, gastrointestinal, neurological, , mu sculoskeletal, and integument systems and related systems to the presenting problem are either stated in the history of present illness or were not pertinent or were negative for the symptoms and/or complaints related to the presenting medical problem. EXAM Physical Exam Narrative Exam Narrative: Vital signs reviewed and patient is not hypoxic. General: The patient appears well and in no apparent distress. Patient is resting comfortably on cart. Not toxic, lethargic, or listless. Skin: Warm, dry, no pallor noted. There is no rash noted. Head: Normocephalic, atraumatic Eye: Normal conjunctiva, no drainage, EOMI. PERRL. Ears, Nose, Mouth, and Throat: oral mucosa is moist. Nares patent. Mouth without vesicles. Cardiovascular: Regular Rate and Rhythm, no murmurs, gallops, or rubs Respiratory: Patient is in no distress, no accessory muscle use, lungs are clear to auscultation, no wheezing, rales or rhonchi Back: non-tender, no CVA tenderness bilaterally to percussion. NO CTLS midline or paraspinal tenderness to palpation. GI: Soft, no tenderness to palpation, no masses appreciated. No rebound, guarding, or rigidity noted. : Patient is circumcised, Jones catheter in place. Patient has no tenderness palpation to bilateral testicles. Patient has a lot of his pubic hair adhered to the glans of the penis, and the Jones catheter, slightly pulling at the shaft of the penis and with the Jones catheter. Patient has extreme minimal dried blood noted to the urethral meatus. Patient has no pain to the shaft or glans of the penis. No suprapubic tenderness palpation. Jones catheter is intact. No active urine or blood coming around the Jones catheter, no significant of blood noted in the Jones bag. Musculoskeletal: The patient has full range of motion of all extremities and joints with no difficulty. Patient has no motor, no sensory deficits. Neurological: A&O x4, normal speech, no focal neurological deficits. Psychiatric: Cooperative Const Vital Signs: 08/16/24 07:14 Temperature 98.1 F Temperature Source Oral Pulse Rate 62 Respiratory Rate 18 Blood Pressure 114/75 Blood Pressure Mean 88 Pulse Ox 97 MDM MDM MDM Narrative Medical decision making narrative: Patient Jones catheter was irrigated by nursing staff. Patient's small amount of blood, dried blood around urethral meatus, and dried adhered pubic area to the glans of the penis and around the Jones catheter clean, irrigated, and managed by nursing staff. The Jones catheter was loosened a little bit, and might have been tugging slightly when patient is walking. Education done again by myself, nursing staff on Jones catheter. Patient will call Sunday for follow-up. Patient has no other questions at discharge, feels better. No questions from patient why. Discharge Plan Triage Chief Complaint: Jones C/O ED Provider: Abdirahman Jerry Dx/Rx/DC Orders Clinical Impression: Jones catheter problem Prescriptions: No Action cyanocobalamin (vitamin B-12) 500 MCG tablet 500 mcg PO DAILY@0800 folic acid 1 MG tablet 1 mg PO DAILY Multiple Vitamin-Minerals 1 EACH tablet 1 ea PO DAILY atenolol 50 MG tablet 25 mg PO QHS pyridoxine (vitamin B6) [Vitamin B-6] 250 MG tablet 250 mg PO DAILY valsartan 160 MG tablet 320 mg PO QHS rosuvastatin [Crestor] 20 MG tablet 40 mg PO QHS hydrochlorothiazide 12.5 MG tablet 12.5 mg PO QHS amlodipine 10 mg tablet 10 mg PO DAILY Primary Care Provider: Greg Luque Referrals: Greg Luque MD [Primary Care Provider] - Alex Diaz MD [Med Staff - Active Staff] - Activity Restrictions/Additional Instructions: Follow-up pain call urology on Sunday. Any other acute concerns return back to the ER. Education done at bedside and discharge paperwork Print Language: Nepali Disposition Disposition: Home, Self Care
== END 2024-08-16 09:05 | disposition home or self-care (01) ==
PROVIDERS: Emergency Provider Emergency Medicine; PCP Family Medicine; Visit Provider Emergency Medicine
DX: T83.89XA Other specified complication of genitourinary prosthetic devices, implants and grafts, initial encounter (principal); X58.XXXA Exposure to other specified factors, initial encounter; I10 Essential (primary) hypertension; E78.00 Pure hypercholesterolemia, unspecified; Z79.899 Other long term (current) drug therapy; Z87.891 Personal history of nicotine dependence
CPT/HCPCS: 99282

== ENCOUNTER 2024-08-23 10:09 | Emergency (ER) | payer MEDICARE, OTHER, SELFPAY ==
[2024-08-23 10:09] VITALS: BP 115/76; PULSE 54; RESP 14; TEMP 36.2; O2SAT 100; BMI 22.7
--- NOTE | 2024-08-23 10:58 | EX.ED.GUMALE ---
HPI History of Present Illness Chief Complaint: Male Pain/Injury Informant: patient Narrative Narrative: Patient presents because of pain at the urethral meatus. He was here in the ER 1 week ago for acute urinary retention had a catheter placed, and he has had it and ever since. Everything is been flowing, he had a little bit of traumatic hematuria when the catheter was placed according to him, but he has had no blood since and there has been no discharge around the catheter from the urethral meatus on his underwear, nor bleeding. Denies any systemic symptoms. He has an appointment on Sunday to see urology, today is Sunday. He states he presented today because the soreness is so significant that he did not feel like he could wait for the day after tomorrow. [facility] Medical History Hypertension Hypercholesteremia Heart disease Colon polyps Home Medications ?Medication ?Instructions ?Recorded ?Last Taken ?Type atenolol 50 mg tablet 25 mg PO QHS 11/08/18 Unknown History cyanocobalamin (vitamin B-12) 500 500 mcg PO DAILY@0800 11/08/18 Unknown History mcg tablet folic acid 1 mg tablet 1 mg PO DAILY 11/08/18 Unknown History hydrochlorothiazide 12.5 mg tablet 12.5 mg PO QHS 11/08/18 Unknown History multivitamin with minerals 1 ea PO DAILY 11/08/18 Unknown History (Multiple Vitamin-Minerals tablet) pyridoxine (vitamin B6) 250 mg 250 mg PO DAILY 11/08/18 Unknown History tablet (Vitamin B-6) rosuvastatin 20 mg tablet (Crestor) 40 mg PO QHS 11/08/18 Unknown History valsartan 160 mg tablet 320 mg PO QHS 11/08/18 Unknown History amlodipine 10 mg tablet 10 mg PO DAILY 04/20/24 Unknown History tamsulosin 0.4 mg capsule 0.4 mg PO DAILY #30 caps 08/23/24 Unknown Rx Allergy/AdvReac Type Severity Reaction Status Date / Time procaine (From Novocain) Allergy Unknown Verified 08/23/24 10:10 ramipril (From Altace) AdvReac COUGH Verified 08/23/24 10:10 triamcinolone (From Kenalog) AdvReac cough Verified 08/23/24 10:10 Social History Smoking Status: Former smoker ROS ROS ED Constitutional Constitutional ED: Denies chills or fever(s) Eyes Eyes: Denies change in vision or diplopia ENT ENT ED: Denies rhinorrhea or sore throat Cardiovascular Cardiovascular: Denies chest pain or palpitations Respiratory/Chest Respiratory/Chest: Denies cough or dyspnea Gastrointestinal Gastrointestinal: Denies abdominal pain, diarrhea, nausea or vomiting Genitourinary Genitourinary ED: Reports other Details: Penis pain at urethral meatus where catheter inserted see HPI ; Denies dysuria or hematuria Musculoskeletal Musculoskeletal: Denies back pain or neck pain Integumentary Denies abscess or rash Neurologic Neurologic: Denies headache(s), paresthesias or weakness Psychiatric Psychiatric: Denies anxiety or suicidal thoughts EXAM Physical Exam Const Vital Signs: 08/23/24 10:09 Temperature 97.2 F L Temperature Source Temporal Pulse Rate 54 L Respiratory Rate 14 Blood Pressure 115/76 Blood Pressure Mean 89 Pulse Ox 100 Oxygen Delivery Method Room Air Positive well nourished and well developed General Appearance ED: well developed and NAD HEENT Reports moist mucous membranes normocephalic and atraumatic Eyes PERRL and EOMs intact bilaterally Neck full ROM and supple Resp normal respiratory effort and clear to auscultation bilaterally Cardio regular rate, regular rhythm and no murmurs GI non-tender and non-distended Auscultation: normoactive bowel sounds Palpation: soft Narrative: There is erythema and tenderness at the urethral meatus and the distal gland surrounding it, but there is no discharge around the catheter which is in place. The catheter appears relatively large for the size of his urethral meatus. There is no bleeding. There is transparent yellow urine within the catheter and leg bag. There is no other areas of the penis that are tender or erythematous and the whole genitourinary area is otherwise normal-appearing. Back/Spine no CVA tenderness General Back: other FROM Extremity normal to inspection General Extremety ED: Negative for edema, pulses abnormal or tenderness General Extremity: Negative for edema or pulses abnormal Neuro oriented x3, CN's II-XII intact bilaterally and no sensory deficits noted Sensorium / Orientation: awake and alert Motor Exam: strength 5/5 throughout Skin no rashes or lesions noted and no wounds MDM MDM MDM Narrative Medical decision making narrative: I reviewed the patient's prior ED visit, partially. It seems a thorough workup was done and he had a CT scan that showed some bladder wall abnormalities and also enlarged prostate, the latter of which is probably causing his acute urinary retention, however he was not put on any medication for this. He has had the catheter in for 1 week. I advised the patient that he does not have any discharge or obvious sign of an infectious urethritis, but even if he did and we started him on an antibiotic he likely would not have any relief of his pain from that treatment today, and if wants immediate relief, I recommend discontinuing the Jones with the risk of recurrent urinary retention. He is amenable to this, and wishes to stay afterwards and drink some fluids and see if he can urinate which I think is reasonable. Patient feels better after the catheter removed him and after an hour or so drinking some fluids he is able to urinate, urinated about 50 cc on his own without symptoms of retention, suggesting this is not stress incontinence. He does not have burning with urination. 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 Discharge Plan Triage Chief Complaint: Male Pain/Injury ED Provider: Giovanni Colvin Dx/Rx/DC Orders Clinical Impression: NSU (nonspecific urethritis), Enlarged prostate, Encounter for Jones catheter removal Instructions: ED BPH (Enlarged Prostate) Prescriptions: New tamsulosin 0.4 mg capsule 0.4 mg PO DAILY Qty: 30 0RF No Action cyanocobalamin (vitamin B-12) 500 MCG tablet 500 mcg PO DAILY@0800 folic acid 1 MG tablet 1 mg PO DAILY Multiple Vitamin-Minerals 1 EACH tablet 1 ea PO DAILY atenolol 50 MG tablet 25 mg PO QHS pyridoxine (vitamin B6) [Vitamin B-6] 250 MG tablet 250 mg PO DAILY valsartan 160 MG tablet 320 mg PO QHS rosuvastatin [Crestor] 20 MG tablet 40 mg PO QHS hydrochlorothiazide 12.5 MG tablet 12.5 mg PO QHS amlodipine 10 mg tablet 10 mg PO DAILY Primary Care Provider: Greg Luque Referrals: Gerg Luque MD [Primary Care Provider] - Alex Diaz MD [Med Staff - Active Staff] - Keep Kimberly appointment Print Language: Amharic Disposition Disposition: Home, Self Care
== END 2024-08-23 12:06 | disposition home or self-care (01) ==
PROVIDERS: Emergency Provider Emergency Medicine; PCP Family Medicine; Visit Provider Emergency Medicine
DX: N34.2 Other urethritis (principal); N40.1 Benign prostatic hyperplasia with lower urinary tract symptoms; R33.8 Other retention of urine; I10 Essential (primary) hypertension; E78.00 Pure hypercholesterolemia, unspecified; Z79.899 Other long term (current) drug therapy; Z87.891 Personal history of nicotine dependence
CPT/HCPCS: 99282

== ENCOUNTER → 2024-10-16 | Outpatient (CLI) | payer MEDICARE, OTHER, SELFPAY ==
[2024-10-16 13:32] LABS: PSA,Total- Diagnostic 5.25 ng/mL (0.0-4.0)
== END | disposition home or self-care (01) ==
LOC: LAB 11:52
PROVIDERS: PCP Family Medicine; Referring Provider Urology; Visit Provider Urology
DX: N40.1 Benign prostatic hyperplasia with lower urinary tract symptoms (principal)